=== PATIENT | male | born 1985 | race Caucasian/White ===

== ENCOUNTER 2018-10-01 21:40 | Observation (INO) | payer OTHER ==
[~2018-10-01] VITALS: Ht 165.1 cm; Wt 108.0 kg
[2018-10-01] MEDS ORDERED: HALO2 PO (22:28)
[2018-10-01] MEDS ORDERED: CITA20 PO (22:28)
--- NOTE | 2018-10-02 00:30 | NUR ---
ASSUMED CARED REPORT TAKEN FROM ED RN SHANNON. PT TO UNIT FROM ED D/T ANAPHYLACTIC REACTION TO NEW MEDICATION AT HOME. PT WAS GIVEN EPI, AND SOLUMEDROL IN THE ED TO CONTROL REACTION. PT APPEARS TO BE BACK TO BASELINE AT THIS TIME. NO WHEEZING, OR STRIDOR NOTED TO AIRWAY. SWELLING IN FACE HAS REDUCED PER PT AND RN. PT DENIES ANY PAIN OR N/T. DENIES ANY SOB. REPORTS FEELS BACK TO NORMAL. PT WILL BE OBS FOR THE EVENING. TELE ON. PT ORIENTED TO ROOM. PT INDEPENDENT IN ROOM, AND UTILIZES CALL LIGHT APPROPRIATELY.
--- NOTE | 2018-10-02 05:31 | NUR ---
SHIFT SUMMARY PT SLEEPING IN ROOM COMFORTABLY. PT HAD NO CHANGES IN STATUS SINCE ARRIVAL. PT CONTINUES TO DENY ANY PAIN OR SOB. SLEEPING COMFORTABLY IN ROOM. RESP EVEN UNLABORED ON RA. CALL LIGHT IN REACH.
--- NOTE | 2018-10-02 07:42 | NUR ---
ASSUMED CARE OF PT @0700. VS ARE STABLE. PT STATES THROAT/LUNGS FEELING CLEAR, DENIES HAVING DIFFICULTY BREATHING. STATES BEING READY TO GO HOME. THIS NURSE TO D/C IV, GIVE AM BENADRYL, AND DC PT. WILL CONTINUE TO MONITOR PT UNTIL DISCHARGE.
== END 2018-10-02 08:58 | disposition home or self-care (01) ==
LOC: ER 21:40 → PCU 21:41
PROVIDERS: ADMIT Hospitalist
DX: T88.6XXA Anaphylactic reaction due to adverse effect of correct drug or medicament properly administered, initial encounter (principal); T43.4X5A Adverse effect of butyrophenone and thiothixene neuroleptics, initial encounter; F20.9 Schizophrenia, unspecified; F31.9 Bipolar disorder, unspecified; F17.210 Nicotine dependence, cigarettes, uncomplicated; E66.9 Obesity, unspecified; Z88.8 Allergy status to other drugs, medicaments and biological substances; Z79.899 Other long term (current) drug therapy; Z68.39 Body mass index [BMI] 39.0-39.9, adult
CPT/HCPCS: 96372-59; 96374; 96375; 96376; 99285-25; G0378; J0171; J1200; J2930; J3490

== ENCOUNTER 2019-05-13 17:25 | Observation (INO) | payer OTHER ==
[~2019-05-13] VITALS: Ht 165.1 cm; Wt 122.5 kg
[~2019-05-13 17:25] MED LIST: CITA20 PO; HALO2 PO
[2019-05-13] MEDS ORDERED: HYDHCL25 PO (17:35)
[2019-05-13] MEDS ORDERED: Lamictal150 MG PO (17:36)
[2019-05-13] MEDS ORDERED: Citalopram HBr40 MG PO (17:36)
[2019-05-13 18:35] LABS: BASOPHILS ABSOLUTE AUTO 0.08 K/mm3 (0.00-0.23); BASOPHILS PERCENT AUTO 1 % (0-2); EOSINOPHILS PERCENT AUTO 1 % (0-6); Hematocrit 50.6 % (37.0-53.0); IMMATURE GRAN ABSOLUTE AUTO 0.02 K/mm3 (0.00-0.10); IMMATURE GRAN PERCENT AUTO 0 % (0-1); LYMPHOCYTES ABSOLUTE AUTO 3.37 K/mm3 (0.84-5.20); LYMPHOCYTES PERCENT AUTO 31 % (21-46); MONOCYTES ABSOLUTE AUTO 1.11 K/mm3 (0.16-1.47); MONOCYTES PERCENT AUTO 10 % (4-13); Mean Corpuscular HGB 29.7 pg (26.0-34.0); Mean Corpuscular HGB Conc 33.6 g/dL (31.5-36.5); Mean Corpuscular Volume 89 fL (80-100); Mean Platelet Volume 10.5 fL (9.1-12.4); NEUTROPHILS ABSOLUTE AUTO 6.34 K/mm3 (1.96-9.15); NEUTROPHILS PERCENT AUTO 58 % (41-73); Platelet Count 295 K/mm3 (150-400); RDW Coefficient Variation 13.5 % (11.7-14.2); RDW Standard Deviation 43.5 fL (35.1-46.3); Red Blood Cell Count 5.72 M/mm3 (4.30-5.90); White Blood Cell Count 11.02 K/mm3 (4.00-11.30)
[2019-05-13 19:20] LABS: Alanine Aminotransfer (ALT/SGP 112 U/L (12-78); Albumin, Blood 4.2 g/dL (3.4-5.0); Albumin/Globulin Ratio 1.1 (0.8-1.8); Alk Phos 155 U/L (50-136); Anion Gap 14 mmol/L (6-16); Aspartate Aminotrans (AST/SGOT 51 U/L (12-37); Bilirubin, Total 0.2 mg/dL (0.1-1.0); Blood Urea Nitrogen 8 mg/dL (8-24); Bun/Creatinine Ratio 10.4 (12.0-20.0); CO2, Blood 20 mmol/L (21-32); Calcium, Blood 9.2 mg/dL (8.5-10.1); Chloride, Blood 104 mmol/L (98-108); Creatinine, Blood 0.77 mg/dL (0.60-1.20); Ethanol (Alcohol), Blood, Med 156 mg/dL; Globulin, Blood 3.8 g/dL (2.2-4.0); Glomerular Filtration Rate >60 (60-); Glucose, Blood 120 mg/dL (70-99); Potassium, Blood 3.6 mmol/L (3.5-5.5); Sodium, Blood 138 mmol/L (136-145)
[2019-05-13 19:38] LABS: Acetaminophen, Random <2.0 ug/mL (10.0-30.0)
[2019-05-13 20:31] LABS: Source, Urine Clean Catch
[2019-05-13 20:36] LABS: Blood, Urine Neg (Neg); Glucose Qualitative, Urine Neg (Neg); Ketones, Urine 2+ (Neg); Leukocyte Esterase, Urine 1+ (Neg); Nitrite, Urine Neg (Neg); Protein, Urine 2+ (Neg); Specific Gravity, Urine 1.025 (1.003-1.022); Urobilinogen, Urine 1+ (Normal)
[2019-05-13 20:41] LABS: Appearance, Urine Hazy (Clear); Bilirubin, Urine 1+ (Neg); Color, Urine Amber (P-Yellow)
[2019-05-13 20:45] LABS: Bacteria Mod /hpf; Mucus Light (0-Heavy); Red Blood Cells, Urine Not Seen /hpf (0-2); Squamous Epithelial Cells Rare /hpf (Few); White Blood Cells, Urine 0-2 /hpf (0-5)
[2019-05-13 20:47] LABS: U Amphetamine Screen DETECTED; U Barbituate Screen Not Detected; U Benzodiazapine Screen DETECTED; U Buprenorphine Screen Not Detected; U Cannabinoids Screen Not Detected; U Cocaine Screen Not Detected; U Methadone Screen Not Detected; U Methamphetamine Screen DETECTED; U Opiates Screen Not Detected; U Oxycodone Screen Not Detected; U Phencyclidine Screen Not Detected; U Propoxyphene Screen Not Detected
== END 2019-05-14 17:23 ==
LOC: ER 17:25 → EOR 17:26
PROVIDERS: Physician Assistant; ADMIT Emergency Medicine
DX: F31.9 Bipolar disorder, unspecified (principal); F20.9 Schizophrenia, unspecified; F15.10 Other stimulant abuse, uncomplicated; Z91.14 Patient's other noncompliance with medication regimen; Z88.8 Allergy status to other drugs, medicaments and biological substances; Z79.899 Other long term (current) drug therapy
CPT/HCPCS: 80053; 81001; 83690; 84443; 85025; 87086; 96372; 99285-25; G0378; G0480; J2060; Q3014

== ENCOUNTER 2019-06-08 17:56 | Observation (INO) | payer OTHER ==
[~2019-06-08] VITALS: Ht 165.1 cm; Wt 127.0 kg
[~2019-06-08 17:56] MED LIST changes: +Citalopram HBr40 MG PO; +HYDHCL25 PO; +Lamictal150 MG PO
[2019-06-08 19:31] LABS: BASOPHILS ABSOLUTE AUTO 0.07 K/mm3 (0.00-0.23); BASOPHILS PERCENT AUTO 0 % (0-2); EOSINOPHILS ABSOLUTE AUTO 0.12 K/mm3 (0.00-0.68); EOSINOPHILS PERCENT AUTO 1 % (0-6); Hematocrit 48.9 % (37.0-53.0); Hemoglobin 16.8 g/dL (13.5-17.5); IMMATURE GRAN ABSOLUTE AUTO 0.13 K/mm3 (0.00-0.10); IMMATURE GRAN PERCENT AUTO 1 % (0-1); LYMPHOCYTES ABSOLUTE AUTO 3.98 K/mm3 (0.84-5.20); LYMPHOCYTES PERCENT AUTO 23 % (21-46); MONOCYTES PERCENT AUTO 8 % (4-13); Mean Corpuscular HGB 29.6 pg (26.0-34.0); Mean Corpuscular HGB Conc 34.4 g/dL (31.5-36.5); Mean Corpuscular Volume 86 fL (80-100); Mean Platelet Volume 9.7 fL (9.1-12.4); NEUTROPHILS ABSOLUTE AUTO 11.54 K/mm3 (1.96-9.15); NEUTROPHILS PERCENT AUTO 67 % (41-73); Platelet Count 354 K/mm3 (150-400); RDW Coefficient Variation 13.2 % (11.7-14.2); RDW Standard Deviation 41.5 fL (35.1-46.3); Red Blood Cell Count 5.67 M/mm3 (4.30-5.90); White Blood Cell Count 17.14 K/mm3 (4.00-11.30)
[2019-06-08 19:54] LABS: Alanine Aminotransfer (ALT/SGP 54 U/L (12-78); Albumin, Blood 4.4 g/dL (3.4-5.0); Albumin/Globulin Ratio 1.1 (0.8-1.8); Alk Phos 155 U/L (50-136); Anion Gap 14 mmol/L (6-16); Aspartate Aminotrans (AST/SGOT 39 U/L (12-37); Bilirubin, Total 0.4 mg/dL (0.1-1.0); Blood Urea Nitrogen 10 mg/dL (8-24); Bun/Creatinine Ratio 12.6 (12.0-20.0); CO2, Blood 20 mmol/L (21-32); Calcium, Blood 9.5 mg/dL (8.5-10.1); Chloride, Blood 103 mmol/L (98-108); Creatinine, Blood 0.79 mg/dL (0.60-1.20); Ethanol (Alcohol), Blood, Med 231 mg/dL; Globulin, Blood 4.1 g/dL (2.2-4.0); Glomerular Filtration Rate >60 (60-); Glucose, Blood 109 mg/dL (70-99); Salicylate 3.2 mg/dL (2.8-20.0); Sodium, Blood 137 mmol/L (136-145); Total Protein, Blood 8.5 g/dL (6.4-8.2)
[2019-06-08 19:55] LABS: Acetaminophen, Random <2.0 ug/mL (10.0-30.0)
[2019-06-08 20:03] LABS: Source, Urine Clean Catch
[2019-06-08 20:15] LABS: Appearance, Urine Clear (Clear); Bilirubin, Urine Neg (Neg); Blood, Urine 1+ (Neg); Color, Urine Yellow (P-Yellow); Glucose Qualitative, Urine Neg (Neg); Ketones, Urine 3+ (Neg); Leukocyte Esterase, Urine Neg (Neg); Nitrite, Urine Neg (Neg); Protein, Urine 2+ (Neg); Specific Gravity, Urine 1.025 (1.003-1.022); Urobilinogen, Urine NORM (Normal)
[2019-06-08 20:17] LABS: Amorphous Light (0-Heavy); Bacteria Not Seen /hpf; Hyaline Casts 0-2 /lpf (0-2); Red Blood Cells, Urine Not Seen /hpf (0-2); Squamous Epithelial Cells Not Seen /hpf (Few); White Blood Cells, Urine Not Seen /hpf (0-5)
[2019-06-08 20:19] LABS: U Amphetamine Screen DETECTED; U Methamphetamine Screen DETECTED
[2019-06-08 20:20] LABS: U Barbituate Screen Not Detected; U Benzodiazapine Screen Not Detected; U Buprenorphine Screen Not Detected; U Cannabinoids Screen Not Detected; U Cocaine Screen Not Detected; U Methadone Screen Not Detected; U Opiates Screen Not Detected; U Oxycodone Screen Not Detected; U Phencyclidine Screen Not Detected; U Propoxyphene Screen Not Detected
== END 2019-06-09 08:45 | disposition home or self-care (01) ==
LOC: ER 17:56 → EOR 17:57
PROVIDERS: ADMIT Emergency Medicine
DX: F31.4 Bipolar disorder, current episode depressed, severe, without psychotic features (principal); T43.622A Poisoning by amphetamines, intentional self-harm, initial encounter; F15.129 Other stimulant abuse with intoxication, unspecified; F10.129 Alcohol abuse with intoxication, unspecified; F20.9 Schizophrenia, unspecified; F17.210 Nicotine dependence, cigarettes, uncomplicated; Z88.8 Allergy status to other drugs, medicaments and biological substances; Z79.899 Other long term (current) drug therapy; Y90.7 Blood alcohol level of 200-239 mg/100 ml
CPT/HCPCS: 36415; 80053; 81001; 85025; 99285; G0378; G0480; J1200; J2060; Q3014

== ENCOUNTER 2022-10-03 07:04 | Emergency (ER) | payer OTHER ==
[~2022-10-03] VITALS: Ht 165.1 cm; Wt 90.7 kg
[2022-10-03] MEDS ORDERED: IBUP600 PO (07:14)
[2022-10-03] MEDS ORDERED: HYDR1TAB94 PO (07:14)
[2022-10-03] MEDS ORDERED: ATOR10 (07:27)
[2022-10-03] MEDS ORDERED: CRUTCH2 XX (07:57)
== END 2022-10-03 08:15 | disposition home or self-care (01) ==
LOC: ER 07:04
DX: T33.822A Superficial frostbite of left foot, initial encounter (principal); T33.821A Superficial frostbite of right foot, initial encounter; X31.XXXA Exposure to excessive natural cold, initial encounter; F31.9 Bipolar disorder, unspecified; F17.210 Nicotine dependence, cigarettes, uncomplicated; Z88.8 Allergy status to other drugs, medicaments and biological substances; Z79.899 Other long term (current) drug therapy
CPT/HCPCS: 96372; 99283-25; A9270; J1885

== ENCOUNTER 2022-12-13 23:51 | Emergency (ER) | payer OTHER ==
[~2022-12-13] VITALS: Ht 175.3 cm; Wt 113.4 kg
[~2022-12-13 23:51] MED LIST changes: +ATOR10; +CRUTCH2 XX; +HYDR1TAB94 PO; +IBUP600 PO
[2022-12-13 23:59] VITALS: BP 114/84
== END 2022-12-14 00:05 | disposition home or self-care (01) ==
LOC: ER 23:51
DX: F10.929 Alcohol use, unspecified with intoxication, unspecified (principal); F17.210 Nicotine dependence, cigarettes, uncomplicated; Z88.8 Allergy status to other drugs, medicaments and biological substances; Z79.899 Other long term (current) drug therapy
CPT/HCPCS: 99282

== ENCOUNTER 2023-06-15 16:18 | Emergency (ER) | payer OTHER ==
[~2023-06-15] VITALS: Ht 177.8 cm; Wt 72.6 kg
[~2023-06-15 16:18] MED LIST changes: +DOXY100 PO; +OMEP20ER PO; +ONDA4ODT MM
[2023-06-15 16:24] VITALS: BP 128/82
[2023-06-15 16:59] LABS: BASOPHILS ABSOLUTE AUTO 0.06 K/mm3 (0.00-0.23); BASOPHILS PERCENT AUTO 1 % (0-2); EOSINOPHILS ABSOLUTE AUTO 0.18 K/mm3 (0.00-0.68); EOSINOPHILS PERCENT AUTO 2 % (0-6); Hematocrit 43.6 % (37.0-53.0); IMMATURE GRAN ABSOLUTE AUTO 0.01 K/mm3 (0.00-0.10); IMMATURE GRAN PERCENT AUTO 0 % (0-1); LYMPHOCYTES ABSOLUTE AUTO 2.54 K/mm3 (0.84-5.20); LYMPHOCYTES PERCENT AUTO 28 % (21-46); MONOCYTES ABSOLUTE AUTO 0.73 K/mm3 (0.16-1.47); MONOCYTES PERCENT AUTO 8 % (4-13); Mean Corpuscular HGB 29.6 pg (26.0-34.0); Mean Corpuscular HGB Conc 34.4 g/dL (31.5-36.5); Mean Corpuscular Volume 86 fL (80-100); NEUTROPHILS ABSOLUTE AUTO 5.45 K/mm3 (1.96-9.15); NEUTROPHILS PERCENT AUTO 61 % (41-73); Platelet Count 242 K/mm3 (150-400); RDW Coefficient Variation 13.2 % (11.7-14.2); Red Blood Cell Count 5.06 M/mm3 (4.30-5.90); White Blood Cell Count 8.97 K/mm3 (4.00-11.30)
[2023-06-15 17:36] LABS: Albumin/Globulin Ratio 1.2 (0.8-1.8); Bilirubin, Total 0.2 mg/dL (0.1-1.0); Bun/Creatinine Ratio 11.1 (12.0-20.0); Calcium, Blood 9.2 mg/dL (8.5-10.1); Creatinine, Blood 0.81 mg/dL (0.60-1.20); Globulin, Blood 3.3 g/dL (2.2-4.0); Potassium, Blood 3.8 mmol/L (3.5-5.5); Total Protein, Blood 7.3 g/dL (6.4-8.2)
== END 2023-06-15 17:28 | disposition home or self-care (01) ==
LOC: ER 16:18
PROVIDERS: Student in an Organized Health Care Education/Training Program
DX: S01.01XA Laceration without foreign body of scalp, initial encounter (principal); S00.83XA Contusion of other part of head, initial encounter; W18.39XA Other fall on same level, initial encounter; F10.129 Alcohol abuse with intoxication, unspecified; F31.9 Bipolar disorder, unspecified; F17.210 Nicotine dependence, cigarettes, uncomplicated; Z88.8 Allergy status to other drugs, medicaments and biological substances; Z79.899 Other long term (current) drug therapy
CPT/HCPCS: 12001; 36415; 70450; 80053; 85025; 99284-25

== ENCOUNTER 2023-06-23 09:49 | Emergency (ER) | payer OTHER ==
[~2023-06-23] VITALS: Ht 165.1 cm; Wt 77.1 kg
[2023-06-23 10:06] VITALS: BP 144/94
[2023-06-23] MEDS ORDERED: Bactrim Ds Tab1 EACH PO (10:09)
== END 2023-06-23 10:10 | disposition home or self-care (01) ==
LOC: ER 09:49
DX: Z48.02 Encounter for removal of sutures (principal); T81.49XA Infection following a procedure, other surgical site, initial encounter; Y83.8 Other surgical procedures as the cause of abnormal reaction of the patient, or of later complication, without mention of misadventure at the time of the procedure; Y92.89 Other specified places as the place of occurrence of the external cause; F31.9 Bipolar disorder, unspecified; F17.210 Nicotine dependence, cigarettes, uncomplicated; Z88.8 Allergy status to other drugs, medicaments and biological substances; Z79.899 Other long term (current) drug therapy
CPT/HCPCS: 99281

== ENCOUNTER 2023-09-11 19:53 | Inpatient (IN) | payer OTHER ==
[~2023-09-11] VITALS: Ht 182.9 cm; Wt 83.0 kg
[~2023-09-11 19:53] MED LIST changes: +Bactrim Ds Tab1 EACH PO
[2023-09-11] MEDS ORDERED: propofoL 100 ML IV ONE (20:02)
[2023-09-11] MEDS ORDERED: propofoL 100 ML IV SCH (20:05)
[2023-09-11] MEDS ORDERED: FentaNYL Citrate 50 MCG/ML 2 ML Injection IV PRN (20:05)
[2023-09-11] MEDS ORDERED: Labetalol HCL 5 MG/ML 4ML Injection (Single Dose) IV ONE (20:05)
[2023-09-11 20:19] LABS: pH Blood Arterial 7.26 (7.35-7.45)
[2023-09-11 20:21] LABS: Hematocrit 47.1 % (37.0-53.0); Hemoglobin 15.3 g/dL (13.5-17.5); Mean Corpuscular HGB 29.5 pg (26.0-34.0); Mean Corpuscular HGB Conc 32.5 g/dL (31.5-36.5); Mean Corpuscular Volume 91 fL (80-100); Mean Platelet Volume 10.2 fL (9.1-12.4); Platelet Count 269 K/mm3 (150-400); RDW Coefficient Variation 13.2 % (11.7-14.2); RDW Standard Deviation 43.9 fL (35.1-46.3); Red Blood Cell Count 5.18 M/mm3 (4.30-5.90); White Blood Cell Count 14.06 K/mm3 (4.00-11.30)
[2023-09-11 20:25] LABS: Calcium, Ionized (POC) 1.17 mmol/L (1.10-1.46); Chloride (POC) 102 mmol/L (98-108); Creatinine (POC) 0.9 mg/dL (0.8-1.3); Glucose (ISTAT POC) 205 mg/dL (70-99); Potassium (POC) 3.5 mmol/L (3.5-5.5); Sodium (POC) 141 mmol/L (135-148); Total CO2 (POC) 23 mmol/L (21-32)
[2023-09-11 20:57] LABS: Ethanol (Alcohol), Blood, Med <3 mg/dL; Magnesium, Blood 2.2 mg/dL (1.6-2.4)
[2023-09-11] MEDS ORDERED: CefTRIAXone Sodium 1,000 MG in NS 50 ML IV ONE (21:00)
[2023-09-11] MEDS ORDERED: Doxycycline Hyclate 100 MG in Dextrose 5% 250 ML IV ONE (21:00)
[2023-09-11 21:02] LABS: Source, Urine Foley catheter
[2023-09-11 21:05] LABS: Alanine Aminotransfer (ALT/SGP 122 U/L (12-78); Albumin, Blood 3.3 g/dL (3.4-5.0); Alk Phos 146 U/L (50-136); Anion Gap 8 mmol/L (6-16); Aspartate Aminotrans (AST/SGOT 129 U/L (12-37); Bilirubin, Direct <0.1 mg/dL (0.0-0.3); Bilirubin, Indirect Unable to Calculate mg/dL (0.1-0.7); Bilirubin, Total 0.2 mg/dL (0.1-1.0); Blood Urea Nitrogen 19 mg/dL (8-24); Bun/Creatinine Ratio 20.5 (12.0-20.0); CO2, Blood 23 mmol/L (21-32); Calcium, Blood 8.5 mg/dL (8.5-10.1); Chloride, Blood 107 mmol/L (98-108); Creatinine, Blood 0.93 mg/dL (0.60-1.20); Globulin, Blood 3.3 g/dL (2.2-4.0); Glomerular Filtration Rate 107 (60-); Glucose, Blood 215 mg/dL (70-99); Potassium, Blood 3.6 mmol/L (3.5-5.5); Sodium, Blood 138 mmol/L (136-145); Total Protein, Blood 6.6 g/dL (6.4-8.2)
[2023-09-11] MEDS ORDERED: NS 1,000 ML IV SCH ×2 (21:05→23:00)
[2023-09-11 21:06] LABS: Appearance, Urine Hazy (Clear); Bilirubin, Urine Neg (Neg); Blood, Urine 5+ (Neg); Color, Urine Yellow (P-Yellow); Glucose Qualitative, Urine Neg (Neg); Ketones, Urine Neg (Neg); Leukocyte Esterase, Urine Neg (Neg); Nitrite, Urine Neg (Neg); Protein, Urine 3+ (Neg); Urobilinogen, Urine NORM (Normal)
[2023-09-11 21:14] LABS: Amorphous Mod (0-Heavy)
[2023-09-11 21:15] LABS: Bacteria Few /hpf; Spermatozoa Few /hpf; Squamous Epithelial Cells Few /hpf (Few); White Blood Cells, Urine 0-2 /hpf (0-5)
[2023-09-11 21:17] LABS: BAND PERCENT MAN 4 % (0-8); BASOPHILS ABSOLUTE MAN 0.14 K/mm3 (0.00-0.23); BASOPHILS PERCENT MAN 1 % (0-2); EOSINOPHILS ABSOLUTE MAN 0.28 K/mm3 (0.00-0.68); EOSINOPHILS PERCENT MAN 2 % (0-6); LYMPHOCYTES PERCENT MAN 37 % (21-46); METAMYELOCYTE ABSOLUTE MAN 0.28 K/mm3 (0.00-0.00); METAMYELOCYTE PERCENT MAN 2 % (0-0); MONOCYTES ABSOLUTE MAN 0.98 K/mm3 (0.16-1.47); MONOCYTES PERCENT MAN 7 % (4-13); MYELOCYTE ABSOLUTE MAN 0.14 K/mm3 (0.00-0.00); MYELOCYTE PERCENT MAN 1 % (0-0); NEUTROPHILS ABSOLUTE MAN 7.03 K/mm3 (1.96-9.15); SEG NEUTROPHILS PERCENT MAN 46 % (41-73); TOTAL CELLS COUNTED 100
[2023-09-11 21:18] LABS: U Amphetamine Screen DETECTED; U Barbituate Screen Not Detected; U Benzodiazapine Screen DETECTED; U Buprenorphine Screen Not Detected; U Cannabinoids Screen Not Detected; U Cocaine Screen Not Detected; U Methadone Screen Not Detected; U Methamphetamine Screen DETECTED; U Opiates Screen DETECTED; U Oxycodone Screen Not Detected; U Phencyclidine Screen Not Detected
[2023-09-11 21:20] LABS: Base Excess Venous 2.4 mmol/L; Bicarbonate Venous 25.5 mmol/L (24.0-30.0); PCO2 Venous 52.6 mmHg (38-42); pH Blood Venous 7.34 (7.34-7.37)
[2023-09-11] MEDS ORDERED: FLU VACC QS2023-24(6MOS UP)/PF 60 MCG/0.5 ML SYRINGE IM ONE (22:10)
[2023-09-11] MEDS ORDERED: Ondansetron HCl 2 MG / ML 2ML Vial IV PRN (22:10)
[2023-09-11 22:35] LABS: International Normalized Ratio 1.04; Prothrombin Time Results 10.9 Sec (9.7-11.5)
[2023-09-11 22:55] LABS: Influenza A, PCR NEGATIVE (NEGATIVE); Influenza B, PCR NEGATIVE (NEGATIVE); Resp Syncytial Virus, PCR NEGATIVE (NEGATIVE); SARS-Cov-2 (COVID-19) PCR, MMC NEGATIVE (NEGATIVE)
[2023-09-11 23:00] VITALS: BP 139/102
[2023-09-11] MEDS ORDERED: Enoxaparin 40 MG/0.4 ML SYR SC SCH (23:00)
[2023-09-11] MEDS ORDERED: propofoL 100 ML IV PRN (23:00)
[2023-09-11 23:15] VITALS: BP 136/98
[2023-09-11] MEDS ORDERED: Piperacillin/Tazobactam Sod 4.5 GM in NS 100 ML IV ONE (23:15)
[2023-09-11 23:30] VITALS: BP 127/103
[2023-09-12] VITALS (58 sets, daily range): BP systolic 88–132; BP diastolic 60–96
[2023-09-12] MEDS ORDERED: Piperacillin/Tazobactam Sod 4.5 GM in NS 100 ML IV SCH
--- NOTE | 2023-09-12 01:28 | NUR ---
PT ADMITTED TO ICU 7 FROM ER UNDER ICU STATUS. PT INTUBATED. QUICKLY AWAKENS DURING SLIDE TRANSFER. DOES REACH TOWARDS ETT. PROPOFOL AT 40 MCG'S/KG/MIN. HAVE SUBSEQUENTLY INCREASED DOSE TO 50 MCG'S/KG/MIN. PT CURRENTLY RELAXED AND TOLERATING VENT MUCH BETTER. WILL REVIEW CHART AND PLAN OF CARE FOR THIS PT.
[2023-09-12 03:16] LABS: BASOPHILS ABSOLUTE AUTO 0.02 K/mm3 (0.00-0.23); BASOPHILS PERCENT AUTO 0 % (0-2); EOSINOPHILS ABSOLUTE AUTO 0.03 K/mm3 (0.00-0.68); EOSINOPHILS PERCENT AUTO 0 % (0-6); Hematocrit 41.1 % (37.0-53.0); Hemoglobin 13.9 g/dL (13.5-17.5); IMMATURE GRAN ABSOLUTE AUTO 0.04 K/mm3 (0.00-0.10); IMMATURE GRAN PERCENT AUTO 0 % (0-1); LYMPHOCYTES ABSOLUTE AUTO 0.97 K/mm3 (0.84-5.20); LYMPHOCYTES PERCENT AUTO 8 % (21-46); MONOCYTES ABSOLUTE AUTO 0.66 K/mm3 (0.16-1.47); MONOCYTES PERCENT AUTO 5 % (4-13); Mean Corpuscular HGB 29.7 pg (26.0-34.0); Mean Corpuscular HGB Conc 33.8 g/dL (31.5-36.5); Mean Corpuscular Volume 88 fL (80-100); Mean Platelet Volume 10.1 fL (9.1-12.4); NEUTROPHILS ABSOLUTE AUTO 10.55 K/mm3 (1.96-9.15); NEUTROPHILS PERCENT AUTO 86 % (41-73); Platelet Count 193 K/mm3 (150-400); RDW Coefficient Variation 13.2 % (11.7-14.2); RDW Standard Deviation 42.7 fL (35.1-46.3); Red Blood Cell Count 4.68 M/mm3 (4.30-5.90); White Blood Cell Count 12.27 K/mm3 (4.00-11.30)
[2023-09-12 03:31] LABS: Base Excess Venous 4.1 mmol/L; Bicarbonate Venous 27.2 mmol/L (24.0-30.0); PCO2 Venous 48.7 mmHg (38-42); pH Blood Venous 7.39 (7.34-7.37)
[2023-09-12 03:34] LABS: Albumin, Blood 3.2 g/dL (3.4-5.0); Albumin/Globulin Ratio 1.2 (0.8-1.8); Bilirubin, Total 0.6 mg/dL (0.1-1.0); Bun/Creatinine Ratio 25.5 (12.0-20.0); Calcium, Blood 8.5 mg/dL (8.5-10.1); Creatinine, Blood 0.74 mg/dL (0.60-1.20); Globulin, Blood 2.6 g/dL (2.2-4.0); Potassium, Blood 4.1 mmol/L (3.5-5.5); Total Protein, Blood 5.8 g/dL (6.4-8.2)
[2023-09-12] MEDS ORDERED: Hydrogen Peroxide 1.5 % Solution MT SCH ×3 (04:00→12:00)
--- NOTE | 2023-09-12 04:55 | NUR ---
PT CONTINUES INTUBATED. AC 16, Tv 500, FIO2 55 %, PEEP 8. PT MAINTAINS SATURATIONS > 90 PERCENT. PROPOFOL AT 50 MCG'S/KG/MIN. PT AWAKENS EASILY AND IS VERY RESISTANT TO HAVING CHEST X-RAY DONE. AGGRESSIVELY ATTEMPTS TO REACH FOR HIS ETT. IS UNSUCESSFUL. SOFT WRIST RESTRAINTS IN USE. VERBAL CUES TO COOPERATE WITH CARE UNSUCESSFUL. WILL CONTINUE TO MONITOR PT
[2023-09-12] MEDS ORDERED: Pantoprazole Sodium 40 MG Injection IV SCH (06:00)
[2023-09-12] MEDS ORDERED: Vancomycin HCL 1,250 MG in NS 250 ML IV SCH (08:00)
[2023-09-12] MEDS ORDERED: FentaNYL Citrate 50 MCG/ML 2 ML Injection IV PRN (09:05)
[2023-09-12] MEDS ORDERED: Midazolam HCl 1MG / ML 2ML Vial IV PRN (09:05)
[2023-09-12] MEDS ORDERED: Thiamine HCl 100 MG in NS 50 ML IV SCH (09:08)
[2023-09-12] MEDS ORDERED: Folic Acid 1 MG in NS 50 ML IV SCH (09:08)
[2023-09-12] MEDS ORDERED: Acetaminophen 160MG / 5ML 10.15 UDC PT PRN (10:15)
--- NOTE | 2023-09-12 10:47 | NUR ---
SHIFT ASSESSMENT ASSUMED CARE OF PT @ 0700, BEDSIDE REPORT RECEIVED FROM VIVIAN URBINA. PT INITIALLY VENTILATED AND SEDATED WITH PROPOFOL. VENT SETTINGS-AC: 16/500/40/8 c SATS >90%. PT GIVEN SEDATION VACATION AND SBT THIS AM, FOLLOWING COMMANDS, GARCIA BUT QUITE DIFFICULT TO CALM DOWN. MEDICATED WITH PRN FENTANYL AND SEDATION BACK ON PER MD. LARGE AMNT OF BLOOD SECRETIONS SUCTIONED VIA ETT. OGT CLAMPED. TEMP PROBE SOMMER DRAINING ADARSH URINE. FEVER OF 101.2, MEDICATED WITH PRN ACETAMINOPHEN.
[2023-09-12] MEDS ORDERED: NS 1,000 ML IV SCH (12:00)
[2023-09-12] MEDS ORDERED: Rocuronium Bromide 10 MG/ML 5ML Injection IV ONE (12:50)
[2023-09-12] MEDS ORDERED: Propofol 10mg/ml 20 ml Vial (Procedural) IV ONE (12:50)
[2023-09-12] MEDS ORDERED: Etomidate 2MG / ML 10ML Vial IV ONE (12:50)
[2023-09-12] MEDS ORDERED: Piperacillin/Tazobactam Sod 3.375 GM in NS 50 ML IV SCH (16:00)
--- NOTE | 2023-09-12 17:55 | NUR ---
SHIFT SUMMARY PT REMAINS INTUBATED AND SEDATED. VENT SETTINGS NOW AC-16/500/35/8 c SATS >90%. PROPOFOL @ 60, ONE DOSE OF 2MG VERSED GIVEN FOR AGITATION. OGT REMAINS CLAMPED. TEMP PROBE SOMMER DRAINING ADARSH URINE. NO BM. NO OTHER SIGNIFICANT CHANGES FROM PRIOR NOTE.
--- NOTE | 2023-09-12 20:00 | NUR ---
ASSUMED CARE OF PT AT 1900. REPORT RECEIVED AT BEDSIDE. PT PRESENTS IN BED. AC 16, Tv 500, FIO2 35 PERCENT. PEEP 8.0 PER VENT. PT HAS PROPOFOL AT 60 MCG'S/KG/MIN. CURRENTLY TOLERATING VENT WELL. WILL REVIEW CHART AND PLAN OF CARE FOR THIS PT.
[2023-09-12 23:01] LABS: Vancomycin, Trough 22.5 ug/mL (5.0-10.0)
[2023-09-13] VITALS (31 sets, daily range): BP systolic 91–122; BP diastolic 49–80
[2023-09-13] MEDS ORDERED: Hydrogen Peroxide 1.5 % Solution MT SCH
[2023-09-13 04:42] LABS: BASOPHILS ABSOLUTE AUTO 0.05 K/mm3 (0.00-0.23); BASOPHILS PERCENT AUTO 1 % (0-2); EOSINOPHILS ABSOLUTE AUTO 0.16 K/mm3 (0.00-0.68); EOSINOPHILS PERCENT AUTO 2 % (0-6); Hematocrit 37.2 % (37.0-53.0); Hemoglobin 11.9 g/dL (13.5-17.5); IMMATURE GRAN ABSOLUTE AUTO 0.04 K/mm3 (0.00-0.10); IMMATURE GRAN PERCENT AUTO 1 % (0-1); LYMPHOCYTES ABSOLUTE AUTO 1.42 K/mm3 (0.84-5.20); LYMPHOCYTES PERCENT AUTO 17 % (21-46); MONOCYTES ABSOLUTE AUTO 0.85 K/mm3 (0.16-1.47); MONOCYTES PERCENT AUTO 10 % (4-13); Mean Corpuscular HGB 29.8 pg (26.0-34.0); Mean Platelet Volume 10.7 fL (9.1-12.4); NEUTROPHILS ABSOLUTE AUTO 5.86 K/mm3 (1.96-9.15); NEUTROPHILS PERCENT AUTO 70 % (41-73); Platelet Count 137 K/mm3 (150-400); RDW Coefficient Variation 13.5 % (11.7-14.2); White Blood Cell Count 8.38 K/mm3 (4.00-11.30)
[2023-09-13 04:58] LABS: Mean Corpuscular Volume 93 fL (80-100)
[2023-09-13 05:02] LABS: Albumin, Blood 2.8 g/dL (3.4-5.0); Anion Gap 4 mmol/L (6-16); Blood Urea Nitrogen 14 mg/dL (8-24); Bun/Creatinine Ratio 16.5 (12.0-20.0); CO2, Blood 28 mmol/L (21-32); Calcium, Blood 8.3 mg/dL (8.5-10.1); Chloride, Blood 109 mmol/L (98-108); Creatinine, Blood 0.85 mg/dL (0.60-1.20); Glomerular Filtration Rate 113 (60-); Glucose, Blood 83 mg/dL (70-99); Phosphorus, Blood 2.1 mg/dL (2.5-4.9); Potassium, Blood 3.6 mmol/L (3.5-5.5); Sodium, Blood 141 mmol/L (136-145)
[2023-09-13] MEDS ORDERED: Vancomycin HCL 1,250 MG in NS 250 ML IV SCH (06:00)
--- NOTE | 2023-09-13 07:11 | NUR ---
PT RECEIVES FULL BEDBATH WITH LINEN CHANGE DONE. PT DOES REACH TOWARDS ETT WHEN RESTRAINTS ARE LOOSENED OR RELEASED. PT DOES NOT REDIRECT TO VERBAL. RESPIRATORY CARE HAS DECREASED PEEP TO 5.0 DURING THIS NIGHT. PT MAINTAINS O2 SATURATIONS > 90 PERCENT. PT DOES HAVE SOME LOWER BLOOD PRESSURES. SOME WITH REFLEXION OF POSITIONING. PT HAS HAD FEVERS DURING THE NIGHT. MEDICATED SEVERAL TIMES WITH TYLENOL WITH GOOD RESULTS. REPORT GIVEN TO ONCOMING RN.
--- NOTE | 2023-09-13 07:34 | NUR ---
SHIFT ASSESSMENT ASSUMED CARE OF PT @ 0700, BEDSIDE REPORT RECEIVED FROM VIVIAN URBINA. PT INITIALLY INTUBATED & SEDATED WITH PROPOFOL. CURRENTLY PERFORMING SEDATION VACATION & SBT. PROPOFOL @ 10MCG/KG/MIN PT BECOMES QUITE ANXIOUS, PULLING HARD ON RESTRAINTS. FOLLOWING ALL COMMANDS, GARCIA, SHAKING HEAD YES/NO TO QUESTIONS. VENT SETTINGS SPONT-14/5 30% c SATS >90%. OGT CLAMPED. TEMP PROBE SOMMER DRAINING ADARSH URINE, TEMP OF 100.2.
[2023-09-13] MEDS ORDERED: Buprenorphine HCL/Naloxone HCL 8MG-2MG Tab SL PRN (09:50)
[2023-09-13] MEDS ORDERED: LORazepam 2 MG/ML 1ML Injection IV PRN (10:25)
[2023-09-13] MEDS ORDERED: Ziprasidone Mesylate 20 MG / Vial IM PRN (10:25)
--- NOTE | 2023-09-13 13:14 | NUR ---
UPDATE PT EXTUBATED TO 2LPM VIA NC @ 1050. CURRENTLY ALERT AND ORIENTED, TRIALING FOOD AND WATER, TOLERATING WELL. FAMILY AT BEDSIDE.
--- NOTE | 2023-09-13 18:00 | NUR ---
SHIFT SUMMARY PT A&OX3, FOLLOWING COMMANDS, AMBULATING WITH 2 PERSON SBA. FOLLOWING COMMANDS AND REMEMBERING SOME EVENTS BUT REMAINS CLOUDY TO MOST EVENTS LEADING UP TO HOSPITALIZATION. BP STABLE, NSR ON DIE HARDENER. ON 3-4LPM O2 VIA NC WHILE SLEEPING, RA WHILE AWAKE. SOMMER CATH DC'D. TOLERATING PO INTAKE WELL. CURRENTLY MED TELE.
--- NOTE | 2023-09-13 19:46 | NUR ---
ASSUMED CARE ASSUMED CARE AT 1900. PT A/O X 4. SLOW TO RESPOND AT TIMES. FOLLOWS DIRECTIONS, AND MOVES ALL EXTREMITIES. NS AT 75ML/HR. VSS. SR RATE 80-90'S. BP STABLE. ON 5L NC WHEN SLEEPING. BED ALARM IN PLACE. CALL LIGHT IN REACH.
[2023-09-14] MEDS ORDERED: Nicotine 21 MG PATCH TOP SCH (00:15)
[2023-09-14] MEDS ORDERED: Acetaminophen 325 MG TABLET PO PRN (02:45)
[2023-09-14 03:45] LABS: BASOPHILS ABSOLUTE AUTO 0.04 K/mm3 (0.00-0.23); BASOPHILS PERCENT AUTO 1 % (0-2); EOSINOPHILS ABSOLUTE AUTO 0.15 K/mm3 (0.00-0.68); EOSINOPHILS PERCENT AUTO 2 % (0-6); Hematocrit 32.2 % (37.0-53.0); Hemoglobin 10.8 g/dL (13.5-17.5); IMMATURE GRAN ABSOLUTE AUTO 0.02 K/mm3 (0.00-0.10); IMMATURE GRAN PERCENT AUTO 0 % (0-1); LYMPHOCYTES ABSOLUTE AUTO 1.08 K/mm3 (0.84-5.20); LYMPHOCYTES PERCENT AUTO 16 % (21-46); MONOCYTES ABSOLUTE AUTO 0.52 K/mm3 (0.16-1.47); MONOCYTES PERCENT AUTO 8 % (4-13); Mean Corpuscular HGB 29.6 pg (26.0-34.0); Mean Corpuscular HGB Conc 33.5 g/dL (31.5-36.5); Mean Platelet Volume 10.2 fL (9.1-12.4); NEUTROPHILS ABSOLUTE AUTO 4.77 K/mm3 (1.96-9.15); NEUTROPHILS PERCENT AUTO 73 % (41-73); Platelet Count 132 K/mm3 (150-400); RDW Coefficient Variation 12.8 % (11.7-14.2); RDW Standard Deviation 41.6 fL (35.1-46.3); Red Blood Cell Count 3.65 M/mm3 (4.30-5.90); White Blood Cell Count 6.58 K/mm3 (4.00-11.30)
[2023-09-14 03:49] LABS: Mean Corpuscular Volume 88 fL (80-100)
[2023-09-14 04:00] VITALS: BP 103/70
[2023-09-14 04:04] LABS: Albumin, Blood 2.7 g/dL (3.4-5.0); Anion Gap 3 mmol/L (6-16); Blood Urea Nitrogen 6 mg/dL (8-24); Bun/Creatinine Ratio 8.9 (12.0-20.0); CO2, Blood 29 mmol/L (21-32); Calcium, Blood 8.2 mg/dL (8.5-10.1); Chloride, Blood 105 mmol/L (98-108); Creatinine, Blood 0.67 mg/dL (0.60-1.20); Glomerular Filtration Rate 122 (60-); Glucose, Blood 115 mg/dL (70-99); Phosphorus, Blood 2.5 mg/dL (2.5-4.9); Potassium, Blood 3.4 mmol/L (3.5-5.5); Sodium, Blood 137 mmol/L (136-145)
--- NOTE | 2023-09-14 06:03 | NUR ---
SHIFT SUMMARY NO ACUTE EVENTS T/O NIGHT. PT A/O X 3. COOPERATIVE WITH CARE. PT UNABLE TO STATE WHAT HAPPENED OR WHY HES HERE. FREQUENT EDUCATION NEEDED. MEDICATED WITH ATIVAN ONCE D/T ANXIETY. HOSP CALLED REGARDING PT REQUESTING A NICOTINE PATCH. ORDERS RECEIVED. VSS. PT EATING AND DRINKING WELL. NS AT 75ML/HR. USES URINAL TO VOID. CALL LIGHT IN REACH. BED ALARM ON.
[2023-09-14] MEDS ORDERED: Potassium Chloride 20 MEQ TabCR PO ONE (06:40)
[2023-09-14] MEDS ORDERED: Furosemide 10 MG / ML 2ML Vial IV ONE (08:00)
[2023-09-14 09:10] VITALS: BP 109/68
[2023-09-14] MEDS ORDERED: NS 250 ML IV PRN (10:30)
[2023-09-14] MEDS ORDERED: Ketorolac Tromethamine 15mg Vial IV PRN (13:10)
[2023-09-14 13:37] LABS: LAMOTRIGINE <0.9 ug/mL (3.0-15.0)
[2023-09-14 13:54] LABS: LAMOTRIGINE <0.9 ug/mL (3.0-15.0)
[2023-09-14] MEDS ORDERED: Vancomycin HCL 1,000 MG in NS 100 ML IV SCH (14:00)
--- NOTE | 2023-09-14 14:20 | NUR ---
SHIFT SUMMARY/TRANSFER TO [facility] FLO[facility] PATIENT BECOMING MORE ALERT AND WALKING MORE STEADY THROUGHOUT SHIFT. UP TO CHAIR FOR BREAKFAST AND WORKED WITH OT WALKING. MEDICATED PER EMAR WITH SUBOXONE AND TYLENOL FOR RIB PAIN. PATIENT REPORTS VISION CHANGES WITH SUBOXONE AND LETHARGY. CALL MADE TO DR. GRANT AND ORDER RECEIVED FOR TORADOL 15MG IV Q6H PRN. PATIENT REPORTED GOOD PAIN RELIEF FROM 10/10 DOWN TO 6/10 WITH TORADOL. PATIENT HAD GOOD URINE OUTPUT THIS SHIFT AND WAS ABLE TO USE URINAL INDEPENDENTLY. NO BM THIS SHIFT. PATIENT FAMILY TO BEDSIDE. PATIENT PLEASANT AND COOPERATIVE WITH CARE. REPORT GIVEN TO SHEELA Taylor RN. TRANSPORTED TO ROOM 360 VIA .
--- NOTE | 2023-09-14 15:53 | NUR ---
1420- PT ARRIVED TO MEDICAL FLOOR IN STABLE CONDITION WITH SITTER. 2 RN SKIN ASSESSMENT PERFORMED BY THIS RN AND CIARA FRANCISCO. NO SKIN ISSUES NOTED.
[2023-09-14 16:52] VITALS: BP 108/80
[2023-09-14 19:41] VITALS: BP 104/69
--- NOTE | 2023-09-14 19:49 | NUR ---
1840- TELEPHONE VERBAL FROM DR. GRANT TO PLACE ORDER FOR 1% HYDROCORTISONE CREAM 1 TOPICAL APPLICATION UP TO TWO TIMES DAILY PRN, AND 25MG OF BENADRYL PO DAILY PRN. BOTH PRN FOR RASH ON PT'S FACE. DR. GRANT AWARE OF PT'S RASH ON FACE.
[2023-09-14] MEDS ORDERED: Hydrocortisone 1% Cream 30 gm TOP PRN (19:50)
[2023-09-14] MEDS ORDERED: diphenhydrAMINE HCl 12.5 MG/5 ML 5MLUDC (Alcohol/Dye Free) PO PRN (19:50)
--- NOTE | 2023-09-14 19:58 | NUR ---
SUMMARY- PT TRIED MULTIPLE TIMES GETTING OOB, BUT SITTER WAS ABLE TO REDIRECT PT. SITTER DC AND PT PLACED ON CAMERA. BED ALARM SET. PT HAD EVAL WITH P.T. TODAY AND WAS REC SBA WITH WALKER. AAOX4. PT ON 7 L O2. BL=RA. MINIMAL COMPLAINTS OF RIB PAIN FROM FX.
[2023-09-14] MEDS ORDERED: ChlordiazePOXIDE 25 MG Cap PO PRN (22:50)
[2023-09-15 03:40] VITALS: BP 100/74
--- NOTE | 2023-09-15 04:06 | NUR ---
SHIFT SUMMARY GLORIA WAS DROWSY, BUT EASILY ROUSABLE AND FULLY ORIENTED ON ASSESSMENT. HYDROCORTISONE CREAM ORDERED AND APPLIED TO PT'S FACIAL RASH. PT CIWA WAS IMPLEMENTED, HE SCORED A 12 ON ASSESSMENT. ORDERS RECIEVED TO CONTINUE THE LIBRIUM THAT THE PT STATES HE WAS RECIEVING IN ASSISTED. PT HAS PAIN IN RIBS FROM CPR, REFUSES SUBOXONE BUT PAIN IS MANAGED WITH TYLENOL AND TORADOL AT THIS TIME. NO ACUTE EVENTS TONIGHT, NO CHANGES TO PT CONDITION. PT RESTING IN BED AT A LOW POSITION WITH CALL LIGHT IN REACH.
[2023-09-15 05:44] LABS: Albumin, Blood 2.6 g/dL (3.4-5.0); Anion Gap 0 mmol/L (6-16); Blood Urea Nitrogen 9 mg/dL (8-24); Bun/Creatinine Ratio 10.2 (12.0-20.0); CO2, Blood 34 mmol/L (21-32); Calcium, Blood 8.7 mg/dL (8.5-10.1); Chloride, Blood 104 mmol/L (98-108); Creatinine, Blood 0.89 mg/dL (0.60-1.20); Glomerular Filtration Rate 112 (60-); Glucose, Blood 113 mg/dL (70-99); Phosphorus, Blood 3.5 mg/dL (2.5-4.9); Sodium, Blood 138 mmol/L (136-145); Vancomycin, Trough 16.2 ug/mL (5.0-10.0)
[2023-09-15 07:24] VITALS: BP 110/66
--- NOTE | 2023-09-15 10:40 | NUR ---
PATIENT REFUSED IV FOLIC AND IV THIAMINE MEDICATIONS. VERBALIZED THAT HE IS TIRED OF ALL THESE MEDICATIONS AND JUST WANTS TO GO HOME. CHARTED THAT HE REFUSED AND NOTIFIED CASING IN LINE SETTER.
[2023-09-15] MEDS ORDERED: Ampicillin Sod/Sulbactam Sod 3 GM in NS 100 ML IV SCH (12:00)
[2023-09-15 13:41] LABS: Vancomycin, Trough 15.9 ug/mL (5.0-10.0)
[2023-09-15 15:28] VITALS: BP 112/67
--- NOTE | 2023-09-15 17:27 | NUR ---
SHIFT SUMMARY A&OX3-4. PATIENT WAS AGGRAVATED THIS MORNING AND REFUSED SOME MEDICATIONS. HE BECAME MORE COORATIVE AND PLEASANT THE DAY WENT ON. COMPLAINED OF 10/10 HEADACHE PAIN AND CHEST PAIN R/T CHEST COMPRESSIONS. MEDICATED WITH TYLENOL AND TORADOL. CIWA SCORES DECREASED THROUGHOUT THE SHIFT. HIS WEAKNESS IS IMPROVING. VIDEO MONITOR WAS DISCONTINUED PATIENT WAS SAFELY AMBUALTING TO BATHROOM. DENIED ANY DIZZINESS OR SOB AND DID NOT REQUIRE ANY OXYGEN. NO ACUTE EVENTS THIS SHIFT. CURRENTLY TAKING A SHOWER.
--- NOTE | 2023-09-15 18:40 | NUR ---
PATIENT REMOVED IV. NO IV ACCESS AT THIS TIME. WILL PASS ON TO NOC SHIFT.
[2023-09-15 19:46] VITALS: BP 105/69
[2023-09-16] MEDS ORDERED: NS 100 ML IV ONE ×2 (00:27→05:36)
[2023-09-16 03:34] VITALS: BP 105/69
--- NOTE | 2023-09-16 05:32 | NUR ---
PATIENT IS ALERT AND ORIENTED. IV REINSERTED ON LEFT AC PATENT AND INTACT. ON ROOM AIR. ON TELE MONITORING. CIWA Q4 MONITORED AND RECORDED. ON ISOLATION D/T MRSA (SPUTUM). COMPLAINT OF PAIN, MEDICATED ACCORDINGLY. NEEDS ATTENDED. WILL CONTINUE TO MONITOR.
[2023-09-16 06:00] LABS: BASOPHILS ABSOLUTE AUTO 0.03 K/mm3 (0.00-0.23); BASOPHILS PERCENT AUTO 1 % (0-2); EOSINOPHILS ABSOLUTE AUTO 0.13 K/mm3 (0.00-0.68); EOSINOPHILS PERCENT AUTO 3 % (0-6); Hematocrit 30.7 % (37.0-53.0); Hemoglobin 10.3 g/dL (13.5-17.5); IMMATURE GRAN ABSOLUTE AUTO 0.02 K/mm3 (0.00-0.10); IMMATURE GRAN PERCENT AUTO 1 % (0-1); LYMPHOCYTES ABSOLUTE AUTO 0.78 K/mm3 (0.84-5.20); LYMPHOCYTES PERCENT AUTO 19 % (21-46); MONOCYTES ABSOLUTE AUTO 0.61 K/mm3 (0.16-1.47); MONOCYTES PERCENT AUTO 15 % (4-13); Mean Corpuscular HGB 29.3 pg (26.0-34.0); Mean Corpuscular HGB Conc 33.6 g/dL (31.5-36.5); Mean Corpuscular Volume 88 fL (80-100); Mean Platelet Volume 10.2 fL (9.1-12.4); NEUTROPHILS ABSOLUTE AUTO 2.61 K/mm3 (1.96-9.15); NEUTROPHILS PERCENT AUTO 62 % (41-73); Platelet Count 189 K/mm3 (150-400); RDW Coefficient Variation 12.7 % (11.7-14.2); RDW Standard Deviation 40.8 fL (35.1-46.3); Red Blood Cell Count 3.51 M/mm3 (4.30-5.90); White Blood Cell Count 4.18 K/mm3 (4.00-11.30)
[2023-09-16] MEDS ORDERED: Pantoprazole Sodium 40 MG Tab PO SCH (06:00)
[2023-09-16 07:18] LABS: Albumin, Blood 2.6 g/dL (3.4-5.0); Anion Gap Unable to Calculate mmol/L (6-16); Blood Urea Nitrogen 9 mg/dL (8-24); CO2, Blood 35 mmol/L (21-32); Calcium, Blood 8.6 mg/dL (8.5-10.1); Chloride, Blood 103 mmol/L (98-108); Creatinine, Blood 0.82 mg/dL (0.60-1.20); Glomerular Filtration Rate 115 (60-); Glucose, Blood 100 mg/dL (70-99); Phosphorus, Blood 3.4 mg/dL (2.5-4.9); Potassium, Blood 3.7 mmol/L (3.5-5.5); Sodium, Blood 137 mmol/L (136-145)
[2023-09-16 08:29] VITALS: BP 113/56
[2023-09-16] MEDS ORDERED: Folic Acid 1 MG TAB PO SCH (09:00)
[2023-09-16] MEDS ORDERED: Thiamine HCl 100 MG Tab PO SCH (09:00)
--- NOTE | 2023-09-16 09:03 | NUR ---
AMA PT JUST SAWE DR GRANT. PT FOUND STANDING IN THE HALLWAY ON RA. HE HAD REMOVED HIS IV. NOT BLEEDING. AND STATED " I LEAVING THIS FUCKING PLACE. I HAVE TO GET TO THE COURTHOUSE. THAT FUCKING ROHIT HERBERT! hE SAID I HAD TO LEAVE." haD PT RETURN TO HIS ROOM. CALLED DR GRANT. AMA CONFIRMED. DR GRANT DID NOT WANT TO PUT HIM ON A HOLD. PT SIGNED THE AMA. WALKED WITH HIM TO ADMITTING. THE ADMITTING LADIES ARE CALLING HIM A CAB TO THE COURTHOUSE. PT SITTING OUTSIDE ON THE BENCH. CARE ONGOING.
== END 2023-09-16 09:02 | disposition left against medical advice (07) | DRG 917 ==
LOC: ER 19:53 → ICUE 22:08 → MEDS 22:08 → ICUE 23:50 → MEDS 09-14 14:09
PROVIDERS: Family Medicine; Internal Medicine Critical Care Medicine; Student in an Organized Health Care Education/Training Program; ADMIT Internal Medicine
PROC: 5A12012 Performance of Cardiac Output, Single, Manual (ICD-10-PCS; principal; 2023-09-11)
PROC: 5A1935Z Respiratory Ventilation, Less than 24 Consecutive Hours (ICD-10-PCS; 2023-09-11)
PROC: 0BH17EZ Insertion of Endotracheal Airway into Trachea, Via Natural or Artificial Opening (ICD-10-PCS; 2023-09-11)
PROC: 0DH67UZ Insertion of Feeding Device into Stomach, Via Natural or Artificial Opening (ICD-10-PCS; 2023-09-11)
PROC: 4A033R1 Measurement of Arterial Saturation, Peripheral, Percutaneous Approach (ICD-10-PCS; 2023-09-11)
DX: T43.651A Poisoning by methamphetamines accidental (unintentional), initial encounter (principal); I46.9 Cardiac arrest, cause unspecified; J96.01 Acute respiratory failure with hypoxia; J69.0 Pneumonitis due to inhalation of food and vomit; R65.10 Systemic inflammatory response syndrome (SIRS) of non-infectious origin without acute organ dysfunction; M96.A3 Multiple fractures of ribs associated with chest compression and cardiopulmonary resuscitation; E87.4 Mixed disorder of acid-base balance; R74.8 Abnormal levels of other serum enzymes; F20.9 Schizophrenia, unspecified; T40.601A Poisoning by unspecified narcotics, accidental (unintentional), initial encounter; Z53.29 Procedure and treatment not carried out because of patient's decision for other reasons; F17.210 Nicotine dependence, cigarettes, uncomplicated; F31.9 Bipolar disorder, unspecified; Z79.899 Other long term (current) drug therapy; Z88.8 Allergy status to other drugs, medicaments and biological substances; Z79.2 Long term (current) use of antibiotics; Z79.891 Long term (current) use of opiate analgesic; Z11.52 Encounter for screening for COVID-19
CPT/HCPCS: 0241U; 31500; 36415; 36600; 51702; 70450; 71045; 71260; 80047; 80048; 80053; 80069; 80076; 80175; 80202; 81001; 82140; 82803; 83605; 83735; 83880; 84145; 84443; 84484; 85014; 85025; 85610; 87040; 87070; 87077; 87147; 87186; 87205; 93005; 93010; 93306; 94002; 94003; 94760; 94762; 96365-59; 96367-59; 96372-59; 96375-59; 97161; 97165; 99291-25; 99292; A9270; C9113; J0295; J0696; J1650; J1885; J1940; J2060; J2250; J2405; J2543; J2704; J3010; J3370; J3411; J7030; J7050; J7060; Q9967

== ENCOUNTER 2023-09-19 13:19 | Emergency (ER) | payer OTHER ==
[~2023-09-19] VITALS: Ht 180.3 cm; Wt 108.9 kg
[2023-09-19 17:30] VITALS: BP 103/75
[2023-09-19] MEDS ORDERED: DOXY100 PO (19:37)
[2023-09-19] MEDS ORDERED: AMOCLA875 PO (19:37)
== END 2023-09-19 17:55 | disposition home or self-care (01) ==
LOC: ER 13:19
DX: F10.129 Alcohol abuse with intoxication, unspecified (principal); F31.9 Bipolar disorder, unspecified; F20.9 Schizophrenia, unspecified; F17.210 Nicotine dependence, cigarettes, uncomplicated; Z88.8 Allergy status to other drugs, medicaments and biological substances
CPT/HCPCS: 99283

== ENCOUNTER 2023-09-19 17:50 | Emergency (ER) | payer OTHER ==
[~2023-09-19] VITALS: Ht 177.8 cm; Wt 90.7 kg
[2023-09-19 18:01] VITALS: BP 145/90
[2023-09-19] MEDS ORDERED: AMOCLA875 PO (19:37)
[2023-09-19] MEDS ORDERED: DOXY100 PO (19:37)
== END 2023-09-19 19:35 | disposition home or self-care (01) ==
LOC: ER 17:50
DX: R07.1 Chest pain on breathing (principal); F17.210 Nicotine dependence, cigarettes, uncomplicated; F20.9 Schizophrenia, unspecified; F31.9 Bipolar disorder, unspecified; Z88.8 Allergy status to other drugs, medicaments and biological substances
CPT/HCPCS: 71046; 99283-25

== ENCOUNTER 2023-09-20 06:21 | Emergency (ER) | payer OTHER ==
[~2023-09-20] VITALS: Ht 165.1 cm; Wt 80.3 kg
[~2023-09-20 06:21] MED LIST changes: +AMOCLA875 PO
[2023-09-20] MEDS ORDERED: Ibuprofen 400 MG Tab PO ONE (07:00)
[2023-09-20] MEDS ORDERED: Amoxicillin/Clavulanate K 875 MG Tab PO ONE (07:00)
[2023-09-20 07:07] VITALS: BP 139/100
== END 2023-09-20 07:15 | disposition home or self-care (01) ==
LOC: ER 06:21
DX: J18.9 Pneumonia, unspecified organism (principal); S22.43XD Multiple fractures of ribs, bilateral, subsequent encounter for fracture with routine healing; X58.XXXD Exposure to other specified factors, subsequent encounter; Z88.8 Allergy status to other drugs, medicaments and biological substances
CPT/HCPCS: 99283-25; A9270